=== PATIENT | female | born 1980 | race Caucasian/White ===

== ENCOUNTER → 2021-02-14 | Day surgery (SDC) | payer OTHER ==
[~2021-02-14] VITALS: Ht 172.7 cm; Wt 86.4 kg
[~2021-02-14] MED LIST: B COMPLEX1 EACH PO; BIOTIN5 MG PO; CRESTOR20 MG PO; GLUCOPHAGE1000 MG PO; IRON 100 PLUS1 EACH PO; KETOROLAC TROME10 MG PO; METFORMIN HCL500 MG PO; RYBELSUS7 MG PO; VITAMIN D350 MC4 PO; ZESTRIL5 MG PO; ZINC50 M1 PO
[2021-02-14 07:00] LABS: HCG (URINE) SCREEN NEGATIVE (NEGATIVE)
[2021-02-14 07:04] LABS: BASOPHIL 0.6 % (0-2); EOSINOPHIL 1.9 % (0-5); HCT 39.2 % (37.0-47.0); HGB 12.7 g/dl (12.5-16.0); LYMPHOCYTE 23.4 % (15-48); MCH 28.9 pg (25.0-31.0); MCHC 32.4 g/dL (32.0-36.0); MCV 89.3 fL (78.0-100.0); MONOCYTE 6.7 % (0-12); MPV 9.8 fL (6.0-9.5); NEUTROPHIL 67.1 % (41-80); NRBC 0; PLT 285 K/uL (150-400); RBC 4.39 M/uL (4.20-5.40); RDW 14.1 % (11.5-14.0); WBC 10.5 K/uL (4.0-10.5)
[2021-02-14 07:33] LABS: ALBUMIN 3.9 g/dL (3.4-5.0); BILIRUBIN - TOTAL 0.4 mg/dL (0.2-1.0); BUN/CREAT RATIO (CALC) 27.6 RATIO; CREATININE 0.58 mg/dL (0.51-0.95); GLOBULIN (CALCULATION) 3.4 g/dL; POTASSIUM 4.2 mmol/L (3.5-5.1); TOTAL PROTEIN 7.3 g/dL (6.4-8.2)
== END | disposition home or self-care (01) ==
LOC: FAS 01-17 09:30
PROVIDERS: Specialist
DX: N92.1 Excessive and frequent menstruation with irregular cycle (principal); E11.9 Type 2 diabetes mellitus without complications; E78.00 Pure hypercholesterolemia, unspecified; R05.9 Cough, unspecified; Z79.84 Long term (current) use of oral hypoglycemic drugs; Z79.1 Long term (current) use of non-steroidal anti-inflammatories (NSAID); Z79.899 Other long term (current) drug therapy; Z87.891 Personal history of nicotine dependence
CPT/HCPCS: 36415; 80053; 84703; 85025; J0690; J2250; J2405; J2704; J3010; J7120